=== PATIENT | female | born 1975 | race American Indian/Alaskan Native ===

== ENCOUNTER 2017-08-19 12:52 | Outpatient (CLI) | payer OTHER ==
--- NOTE | 2017-08-19 13:45 | Mammography Report ---
LEFT DIGITAL DIAGNOSTIC MAMMOGRAM : 08/19/17 12:52:00 CLINICAL: Abnormal screening mammogram. COMPARISON:JORDY 07/31/17 screening FINDINGS: Lateralmedial and spot compression CC views were performed and are negative. IMPRESSION: Negative Mammogram. BI-RADS CATEGORY: 1 -- Negative RECOMMENDATION: Routine mammographic screening in one year. ACR BI-RADS MAMMOGRAPHIC CODES: 0 = Needs additional imaging evaluation; 1 = Negative; 2 = Benign; 3 = Probably benign; 4 = Suspicious; 5 = Malignant; 6 = Known biopsy-proven malignancy COMMENT: 1. Dense breast tissue, i.e., adenosis, fibrocystic changes, etc., may obscure an underlying neoplasm. 2. Approximately 10% of cancers are not detected with mammography. 3. A negative mammography report should not delay biopsy if a clinically suspicious mass is present. COMMENT: Patient follow-up letters are generated via our [employer] application.
== END 2017-08-19 12:53 | disposition home or self-care (01) ==
LOC: MAMMO 12:52
PROVIDERS: ATTEND Physician Assistant Medical
DX: R92.8 Other abnormal and inconclusive findings on diagnostic imaging of breast (principal)